=== PATIENT | female | born 1945 | race American Indian/Alaskan Native ===

== ENCOUNTER 2018-04-15 14:24 | Emergency (ER) | payer MEDICARE ==
[2018-04-15] MEDS ORDERED: ASPIRIN PO ONE (15:30)
[2018-04-15 16:21] LABS: Basophils # (Auto) 0.1 K/mm3 (0.0-0.1); Basophils % (Auto) 1.2 % (0.0-1.8); Eosinophils # (Auto) 0.4 K/mm3 (0.0-0.4); Eosinophils % (Auto) 3.7 % (0.0-4.3); Hematocrit 31.2 % (30.3-42.9); Hemoglobin 10.1 gm/dl (10.1-14.3); Lymphocytes # (Auto) 1.6 K/mm3 (1.2-5.4); Lymphocytes % (Auto) 13.7 % (13.4-35.0); Mean Corpuscular HGB Conc 32 % (30-34); Monocytes # (Auto) 0.8 K/mm3 (0.0-0.8); Monocytes % (Auto) 6.5 % (0.0-7.3); Platelet Count 588 K/mm3 (140-440); Red Blood Count 4.47 M/mm3 (3.65-5.03)
[2018-04-15 16:24] LABS: BUN/Creatinine Ratio 30; Blood Urea Nitrogen 12 mg/dL (7-17); Calcium 9.2 mg/dL (8.4-10.2); Hemolysis Index 62; Mean Corpuscular Volume 70 fl (79-97)
--- NOTE | 2018-04-15 19:37 | Emergency Department Report ---
ED Female HPI - General Chief complaint: Vaginal Bleeding Stated complaint: VAGINAL BLEEDING Time Seen by Provider: 04/15/18 16:22 Source: EMS Mode of arrival: Stretcher Limitations: Physical Limitation - History of Present Illness Initial comments: 72 yo F sent from [facility] for intermittent vaginal bleeding. No bleeding at this time. Patient reportedly was taken to CONTACT LENS ASSISTANT's office but was not seen b/c physician was not there. Pt sent to the ER. No active bleeding at this time. Pt hypoglycemic upon arrival. Pt states she is hungry and says she missed lunch. MD Complaint: vaginal bleeding -: unknown Severity: Unable to Determine Consistency: intermittent Improves with: none Worsens with: none Associated Symptoms: vaginal bleeding - Related Data Previous Rx's Medication Instructions Recorded Last Taken Type Ferrous Sulfate [Feosol 325 MG tab] 325 mg PO BID #60 tablet 10/10/17 Unknown Rx Allergies Allergy/AdvReac Type Severity Reaction Status Date / Time No Known Allergies Allergy Verified 11/22/12 16:02 ED Review of Systems ROS: Stated complaint: VAGINAL BLEEDING Other details as noted in HPI Comment: All other systems reviewed and negative Gastrointestinal: denies: abdominal pain Genitourinary: abnormal menses ED Past Medical Hx - Past Medical History Previous Medical History?: Yes Hx Hypertension: Yes Hx CVA: Yes (left side def) Hx Congestive Heart Failure: No Hx Arthritis: Yes (knees) Additional medical history: constipation; insomnia; CVD; pneumonia MRSA type; osteomyelitis; joint pain;obesity - Surgical History Additional Surgical History: none noted on [place] records - Social History Smoking Status: Never Smoker Substance Use Type: None - Medications Home Medications: Home Medications Medication Instructions Recorded Confirmed Last Taken Type Ferrous Sulfate [Feosol 325 MG tab] 325 mg PO BID #60 tablet 10/10/17 Unknown Rx ED Physical Exam - General Limitations: Physical Limitation - Speculum exam: Present: other (no active bleeding) - Extremities Exam Extremities exam: Present: normal inspection - Neurological Exam Neurological exam: Present: alert - Psychiatric Psychiatric exam: Present: normal affect, normal mood - Skin Skin exam: Present: warm, dry, intact, normal color ED Course Vital Signs 04/15/18 04/15/18 15:38 19:58 Temperature 97.8 F Pulse Rate 105 H 92 H Respiratory 20 17 Rate Blood Pressure 108/57 Blood Pressure 101/36 [Left] O2 Sat by Pulse 97 Oximetry ED Medical Decision Making - Lab Data Result diagrams: 04/15/18 16:01 04/15/18 16:01 - Radiology Data Radiology results: report reviewed, image reviewed - Medical Decision Making 72-year-old female sent from [facility] for intermittent vaginal bleeding because she was unable to be seen by a fork truck operator in the office. Hemoglobin normal. No active vaginal bleeding at this time. Pelvic ultrasound shows thickened endometrium, differential includes neoplasia or hyperplasia. Patient stable at this time will require outpatient [facility] ASSISTANT follow-up for postmenopausal bleeding. - Differential Diagnosis neoplasm Critical care attestation.: If time is entered above; I have spent that time in minutes in the direct care of this critically ill patient, excluding procedure time. ED Disposition Clinical Impression: DUB (dysfunctional uterine bleeding), Postmenopausal bleeding Disposition: TO HOME OR SELFCARE Is pt being admited?: No Condition: Stable Instructions: Dysfunctional Uterine Bleeding (ED) Referrals: SANGITA LEON MD [Staff Physician] - 3-5 Days Time of Disposition: 20:32
[2018-04-15 19:59] VITALS: BP 108/57
--- NOTE | 2018-04-15 20:17 | Ultrasound Report ---
FINAL REPORT EXAM: US PELVIC COMPLETE HISTORY: vag bleed TECHNIQUE: Real-time sonography was performed of the pelvis transabdominally. Images are submitted f or interpretation. Endovaginal sonography was not performed. PRIORS: None. FINDINGS: Images are limited by lack of bladder as acoustic window. The endometrium is thickened up to 3.4 cm a nd is heterogeneous containing fluid and solid tissue. There is a hypoechoic left adnexal mass measur ing 11.2 x 0.1 x 9.0 cm that appears contiguous with the uterus. The ovaries are not seen. There is no free pelvic fluid. IMPRESSION: Limited evaluation of the pelvis shows heterogeneous thickened endometrium containing fluid and solid tissue. This may be due to hyperplasia or neoplasia. Left adnexal hypoechoic mass may represent a uterine fibroid. Recommend further evaluation with MRI.
== END 2018-04-15 23:00 | disposition home or self-care (01) ==
LOC: ED 14:24
DX: N95.0 Postmenopausal bleeding (principal); N93.8 Other specified abnormal uterine and vaginal bleeding; I10 Essential (primary) hypertension; M17.0 Bilateral primary osteoarthritis of knee; K59.00 Constipation, unspecified
CPT/HCPCS: 36415; 76856; 80048; 82962; 84484; 85025; 93005; 93010

== ENCOUNTER 2018-08-24 08:16 | Emergency (ER) | payer MEDICARE ==
--- NOTE | 2018-08-24 08:28 | Emergency Department Report ---
ED CPR HPI - General Stated Complaint: CARDIAC ARREST Time Seen by Provider: 08/24/18 08:22 Source: EMS, old records reviewed Mode of arrival: Stretcher Limitations: Altered Mental Status, Physical Limitation - History of Present Illness Initial Comments: 72-year-old female presents from care home in cardiopulmonary arrest. As per previous medical record review patient has a history of hypothyroidism, anemia, and hypertension. skilled nursing staff reports that patient was last seen alive and normal at 6 AM. EMS on scene 20 minutes prior to arrival report patient was in asystole. Intubated with ET tube, CPR, and epinephrine 2, and sodium bicarbonate 2 provided prior to arrival and patient remained in asystole. Accu-Chek reported as 163. Upon arrival patient is in PEA and remains pulseless and apneic. ACLS continued upon arrival. - Related Data Previous Rx's Medication Instructions Recorded Last Taken Type Ferrous Sulfate [Feosol 325 MG tab] 325 mg PO BID #60 tablet 10/10/17 Unknown Rx Allergies Allergy/AdvReac Type Severity Reaction Status Date / Time No Known Allergies Allergy Verified 11/22/12 16:02 ED Review of Systems ROS: Stated complaint: CARDIAC ARREST Other details as noted in HPI Comment: Unobtainable due to pts medical conditions ED Past Medical Hx - Past Medical History Hx Hypertension: Yes Hx CVA: Yes (left side def) Hx Congestive Heart Failure: No Hx Arthritis: Yes (knees) Additional medical history: constipation; insomnia; CVD; pneumonia MRSA type; osteomyelitis; joint pain;obesity - Surgical History Additional Surgical History: none noted on [place] records - Social History Smoking Status: Never Smoker Substance Use Type: None - Medications Home Medications: Home Medications Medication Instructions Recorded Confirmed Last Taken Type Ferrous Sulfate [Feosol 325 MG tab] 325 mg PO BID #60 tablet 10/10/17 Unknown Rx ED Physical Exam - Other Other exam information: General: Unresponsive Head exam: Atraumatic, normocephalic Eyes exam: Normal appearance, pupils unreactive to light ENT: Moist mucous membrane, orally intubated Neck exam: Normal inspection Respiratory exam: No spontaneous respirations. Breath sounds bilaterally with bag and right louder than the left. No breath sounds over the epigastric Cardiovascular: Pulseless Abdomen: Soft, nondistended, obese Extremity: No deformity, no spontaneous movement Back: Normal Inspection Neurologic: GCS equals 3 Psychiatric: Unresponsive Skin: Warm, dry ED Course - Reevaluation(s) Reevaluation #1: 08/24/18 08:26 ACLS continued upon patient arrival. Patient with PEA. She received 2 additional doses of epinephrine without return of spontaneous circulation. Further resuscitation felt to be futile at this time given extended period of pulselessness and Asystole/PEA arrest. Time of 8:22 AM. ED Medical Decision Making - Medical Decision Making Patient presents with cardiopulmonary arrest with unknown cause. Unfortunately there was no return of spontaneous circulation with resuscitation efforts. - Differential Diagnosis arrhythmia, MD, PE, cardiopulmonary arrest Critical Care Time: Yes Critical care time in (mins) excluding proc time.: 15 Critical care attestation.: If time is entered above; I have spent that time in minutes in the direct care of this critically ill patient, excluding procedure time. ED Disposition Clinical Impression: Cardiopulmonary arrest Disposition: DC-20 Is pt being admited?: No Condition: Critical Time of Disposition: 08:29
[2018-08-24] MEDS ORDERED: ADRENALIN ONE (14:34)
== END 2018-08-24 09:30 ==
LOC: ED 08:16
DX: I46.9 Cardiac arrest, cause unspecified (principal); I10 Essential (primary) hypertension; M13.862 Other specified arthritis, left knee; M13.861 Other specified arthritis, right knee; Z86.73 Personal history of transient ischemic attack (TIA), and cerebral infarction without residual deficits; Z79.899 Other long term (current) drug therapy
CPT/HCPCS: 92950; 99285; J0171